=== PATIENT | female | born 1955 | race American Indian/Alaskan Native ===

== ENCOUNTER 2018-08-13 14:24 | Emergency (ER) | payer MEDICARE ==
[2018-08-13 15:33] LABS: Basophils # (Auto) 0.1 K/mm3 (0.0-0.1); Basophils % (Auto) 1.4 % (0.0-1.8); Eosinophils # (Auto) 0.4 K/mm3 (0.0-0.4); Eosinophils % (Auto) 5.7 % (0.0-4.3); Hemoglobin 11.5 gm/dl (10.1-14.3); Lymphocytes # (Auto) 2.6 K/mm3 (1.2-5.4); Lymphocytes % (Auto) 39.4 % (13.4-35.0); Monocytes # (Auto) 0.9 K/mm3 (0.0-0.8); Monocytes % (Auto) 13.6 % (0.0-7.3)
[2018-08-13 15:39] LABS: Mean Corpuscular HGB Conc 34 % (30-34); Mean Corpuscular Volume 91 fl (79-97); Platelet Count 390 K/mm3 (140-440); Red Blood Count 3.72 M/mm3 (3.65-5.03); Red Cell Distribution Width 13.9 % (13.2-15.2)
[2018-08-13] MEDS ORDERED: ANTIVERT PO ONE (15:41)
[2018-08-13] MEDS ORDERED: NORMODYNE IV ONE (15:41)
--- NOTE | 2018-08-13 15:42 | Emergency Department Report ---
HPI - General Chief Complaint: Dizziness Time Seen by Provider: 08/13/18 14:58 - HPI HPI: 63-year-old female presents to the emergency department with a 2 day history of some dizziness, lightheadedness, vertigo-like symptoms and a headache. The headache is towards the left frontal region. She denies any vision change, slurred speech or any neurological deficits. 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 She has a history of hypertension but has not been on any medications in over a year. She says that all of the blood pressure medications "make me feel worse." She takes a daily baby aspirin but otherwise she has not taken anything for her symptoms prior to arrival. No recent travel or sick contacts at home. ED Past Medical Hx - Past Medical History Hx Hypertension: Yes (off meds since 2016) Hx CVA: Yes ([id number]) Additional medical history: constant left-sided pain since CVA - Surgical History Past Surgical History?: Yes Hx Appendectomy: Yes - Social History Smoking Status: Current Every Day Smoker Substance Use Type: None - Medications Home Medications: Home Medications Medication Instructions Recorded Confirmed Last Taken Type Meclizine [Antivert] 25 mg PO TID PRN #20 tablet 08/13/18 Unknown Rx ED Review of Systems ROS: Stated complaint: DIZZY/HEADACHE/COUGH Other details as noted in HPI Comment: All other systems reviewed and negative Constitutional: denies: chills, fever Eyes: denies: eye pain, eye discharge, vision change ENT: denies: ear pain, throat pain Respiratory: denies: cough, shortness of breath, wheezing Cardiovascular: denies: chest pain, palpitations Gastrointestinal: denies: abdominal pain, nausea, diarrhea Genitourinary: denies: urgency, dysuria, discharge Musculoskeletal: denies: back pain, arthralgia Skin: denies: rash, lesions Neurological: headache, vertigo, other (dizziness) Physical Exam - Physical Exam Vital Signs: Vital Signs 08/13/18 14:33 Temperature 97.8 F Pulse Rate 89 Respiratory 18 Rate Blood Pressure 201/127 O2 Sat by Pulse 97 Oximetry Physical Exam: GENERAL: The patient is well-developed well-nourished. HEENT: Normocephalic. Atraumatic. Patient has moist mucous membranes. EYES: Extraocular motions are intact. Pupils are equal and reactive to light bilaterally. NECK: Supple. Trachea is midline. CHEST/LUNGS: Clear to auscultation. There is no respiratory distress noted. HEART/CARDIOVASCULAR: Regular. There is no tachycardia. There is no obvious murmur. ABDOMEN: Abdomen is soft, nontender. Patient has normal bowel sounds. There is no abdominal distention. SKIN: Skin is warm and dry. NEURO: The patient is awake, alert, and oriented. The patient is cooperative. The patient has no focal neurologic deficits. The patient has normal speech. Cranial nerves II through XII grossly intact. MUSCULOSKELETAL: There is no tenderness or deformity. There is no limitation range of motion. There is no evidence of acute injury. ED Course Vital Signs 08/13/18 14:33 Temperature 97.8 F Pulse Rate 89 Respiratory 18 Rate Blood Pressure 201/127 O2 Sat by Pulse 97 Oximetry ED Medical Decision Making - Lab Data Result diagrams: 08/13/18 15:20 08/13/18 15:20 - EKG Data -: EKG Interpreted by Hi EKG shows normal: sinus rhythm, axis, intervals, QRS complexes (LVH, interventricular conduction delay), ST-T waves (early repolarization to the ant erior leads) Rate: normal - EKG Data When compared to previous EKG there are: previous EKG unavailable Interpretation: other (normal axis, normal intervals, LVH, interventricular conduction delay, early repolarization to the anterior leads) - Radiology Data Radiology results: report reviewed EXAM: CT HEAD/BRAIN WO CON HISTORY: headache TECHNIQUE: Standard unenhanced CT of the head at 5.0 millimeter axial increments. PRIORS: None. FINDINGS: The ventricular system is normal in size and configuration. There is no evidence for parenchymal volume loss. Several tiny remote lacunar infarcts are present in the basal ganglia and internal cap sules bilaterally. There is no evidence for mass lesion, mass effect, midline shift, acute intracranial hemorrhage, or acute ischemia/ infarction. No evidence for acute skull fracture is seen. No abnormality in the overlying scalp soft tissues is seen. Visualized paranasal sinuses demonstrate mild mucosal thickening in the left maxillary sinus. IMPRESSION: No acute intracranial process noted. Transcribed By: [facility] Dictated By: MOUNA PRITCHETT MD Electronically Authenticated By: MOUNA PRITCHETT MD Signed Date/Time: 08/13/18 2992 - Medical Decision Making Patient presents with a 2 day history of some nausea without vomiting, dizziness and vertigo-like symptoms as well as a headache. The patient presents with elevated blood pressure but admits to medication noncompliance. On examination she does not have any focal, motor or sensory deficits in her cranial nerves are intact. Labs have been unremarkable including her CBC, BMP, troponin and thyroid level. EKG shows some LVH and early repolarization but no morphology consistent with ST elevation [place] or any significant dysrhythmia. CT scan of the head without contrast does not show any bleed, shift, mass, ischemia or any other acute process. Patient was given a dose of labetalol and her blood pressure came down to a more reasonable level. She was given a dose of Antivert. She had a chest x-ray that did not show any pneumonia, pneumothorax, pleural effusions. No obvious focal consolidation with a baby one or 2 small pulmonary nodules seen. The patient admits that she has metoprolol, and amlodipine, but she does not take these medications because she says she does not like the way it makes her feel. On top of that, the patient is a moderate to heavy tobacco smoker. She also drinks caffeinated soda in a large quantity each day. Patient also eats products that contain salt. The patient has some dietary and lifestyle changes that she can make to help with her blood pressure and her overall state of health. However the patient does not appear to be interested in making these changes. We discussed that if the patient continues with this particular lifestyle, medication noncompliance, etc., then she can possibly have some future issues such as further strokes, heart attack, kidney failure. Patient was given a prescription for some Antivert for some vertigo-like symptoms that she presented with. She was reevaluated multiple times over multiple hours and says that the symptoms resolved after she received some Antivert here. She was seen ambulatory prior to discharge and appears stable while doing so. She was given some referrals for primary care physicians and clinics in the area. She will return to the ER with any worsening of her symptoms or any acute distress. - Differential Diagnosis vertigo, TIA, hypertensive urgency, dysrhythmia Critical Care Time: No Critical care attestation.: If time is entered above; I have spent that time in minutes in the direct care of this critically ill patient, excluding procedure time. ED Disposition Clinical Impression: Tobacco use, Noncompliance with medication regimen, Dizziness, Vertigo Hypertension Qualifiers: Hypertension type: essential hypertension Qualified Code(s): I10 - Essential (primary) hypertension Disposition: TO HOME OR SELFCARE Is pt being admited?: No Condition: Stable Instructions: How to Stop Smoking (ED), Vertigo (ED), Hypertension (ED), Lightheadedness (ED), Dizziness (ED) Additional Instructions: Please follow up with a primary care physician in the next few days. I rec ommend that you take your blood pressure medications. Keep a blood pressure log. Try and quit smoking. Try and stay away from foods that are high in salt and caffeinated products to help with her blood pressure. Return to the emergency Department with any worsening of your symptoms or any acute distress. Prescriptions: Meclizine [Antivert] 25 mg PO TID PRN #20 tablet PRN Reason: Vertigo Referrals: PRIMARY CAREMD [Primary Care Provider] - 2-3 Days ALBIN MACHUCA MD [Staff Physician] - 2-3 Days [facility] [Outside] - 2-3 Days Time of Disposition: 18:23
[2018-08-13 16:03] LABS: Alanine Aminotransferase 7 units/L (7-56); Albumin 3.9 g/dL (3.9-5); BUN/Creatinine Ratio 15; Blood Urea Nitrogen 17 mg/dL (7-17); Calcium 10.2 mg/dL (8.4-10.2); Hemolysis Index 23
[2018-08-13 17:23] VITALS: BP 160/91
--- NOTE | 2018-08-13 17:45 | Cat Scan Report ---
FINAL REPORT EXAM: CT HEAD/BRAIN WO CON HISTORY: headache TECHNIQUE: Standard unenhanced CT of the head at 5.0 millimeter axial increments. PRIORS: None. FINDINGS: The ventricular system is normal in size and configuration. There is no evidence for parenchymal volu me loss. Several tiny remote lacunar infarcts are present in the basal ganglia and internal capsules bilaterally. There is no evidence for mass lesion, mass effect, midline shift, acute intracranial hemorrhage, or a cute ischemia/ infarction. No evidence for acute skull fracture is seen. No abnormality in the overlying scalp soft tissues is seen. Visualized paranasal sinuses demonstrate mild mucosal thickening in the left maxillary sinus. IMPRESSION: No acute intracranial process noted.
--- NOTE | 2018-08-13 18:58 | XRay Report ---
FINAL REPORT EXAM: XR CHEST ROUTINE 2V HISTORY: cough TECHNIQUE: PA and lateral views of the chest PRIORS: None. FINDINGS: Lines, tubes, and devices: N/A Lungs and pleura: Trachea is normal in position. Lungs are clear of infiltrate, pleural effusion, va scular congestion, or pneumothorax. Cardiomediastinal silhouette: Cardiac and mediastinal silhouettes are unremarkable. Other: Bony structures are intact. IMPRESSION: No acute cardiopulmonary process seen.
== END 2018-08-13 18:40 | disposition home or self-care (01) ==
LOC: ED 14:24
DX: I10 Essential (primary) hypertension (principal); R42 Dizziness and giddiness; F17.200 Nicotine dependence, unspecified, uncomplicated; Z86.73 Personal history of transient ischemic attack (TIA), and cerebral infarction without residual deficits; Z90.49 Acquired absence of other specified parts of digestive tract; Z72.0 Tobacco use; Z88.6 Allergy status to analgesic agent; Z88.8 Allergy status to other drugs, medicaments and biological substances
CPT/HCPCS: 36415; 70450; 71046; 80053; 84443; 84484; 85025; 93005; 93010; 96374